=== PATIENT | female | born 2000 | race American Indian/Alaskan Native ===

== ENCOUNTER 2020-12-04 15:03 | Inpatient (IN) | payer MEDICAID ==
[2020-12-04] MEDS ORDERED: ePHEDrine SULFATE 50 MG/1 ML INJ IV PRN ×2 (17:20→17:31)
[2020-12-04] MEDS ORDERED: TERBUTALINE 1 MG/1 ML INJ SUB-Q PRN ×2 (17:20→17:31)
[2020-12-04] MEDS ORDERED: MINERAL OIL 30 ML ORAL LIQD PO PRN ×2 (17:20→17:31)
[2020-12-04] MEDS ORDERED: miSOPROStol 200 MCG TAB PR PRN (17:31)
[2020-12-04] MEDS ORDERED: METHYLERGONOVINE MALEATE 0.2 MG/ML VIAL IM PRN (17:31)
[2020-12-04] MEDS ORDERED: ONDANSETRON 4 MG/2 ML INJ IV PRN (17:31)
[2020-12-04] MEDS ORDERED: BUTORPHANOL 2 MG/1 ML INJ IV PRN ×2 (17:31)
[2020-12-04] MEDS ORDERED: ACETAMINOPHEN 325 MG TAB PO PRN (17:31)
[2020-12-04] MEDS ORDERED: OXYTOCIN 10 UNIT/1 ML INJ IM PRN (17:31)
[2020-12-04] MEDS ORDERED: fentaNYL 100 MCG/2 ML INJ IV PRN (17:31)
[2020-12-04] MEDS ORDERED: CARBOPROST TROMETHAMINE 250 MCG/1 ML INJ IM PRN (17:31)
[2020-12-04] MEDS ORDERED: LIDOCAINE (2%) 20 MG/1 ML VIAL 20 ML MDV INFILTRATI ONE (17:31)
[2020-12-04] MEDS ORDERED: LOPERAMIDE 2 MG CAP PO PRN (17:31)
[2020-12-04] MEDS ORDERED: AMPICILLIN/NS 2 GM/100 ML 2 GM/100 ML BAG IV ONE (17:32)
[2020-12-04] MEDS ORDERED: LACTATED RINGERS 1,000 ML IV SCH (17:45)
[2020-12-04 17:53] LABS: Hematocrit 33.9 % (30.3-42.9); Mean Corpuscular HGB Conc 32 % (30-34); Mean Corpuscular Volume 75 fl (79-97); Platelet Count 158 K/mm3 (140-440); Red Blood Count 4.54 M/mm3 (3.65-5.03); Red Cell Distribution Width 14.8 % (13.2-15.2)
[2020-12-04] MEDS ORDERED: OXYTOCIN DRIP 30 UNITS/500 ML BAG IV SCH ×2 (18:00)
--- NOTE | 2020-12-04 19:38 | History and Physical Report ---
History of Present Illness Date of examination: 12/04/20 Date of admission: 12/04/20 Chief complaint: c/o uc since early am History of present illness: 20 y/o presents to [facility] @ 38.3wks with c/o uc since early am. She denies VB or LOF. Pt initiated her pnc @ [facility] @ 9 4/7wks. She was treated for chly and trich and latter tested neg for both. Pt has is a carrier of Alpha thalassemia and tested pos for GBS. Otherwise her preg has been w/o complicatio ns. Surgical/social/family hx is unremarkable. Pt was found to be in labor and was transferred to L&D for delivery. Past History Past Medical History: no pertinent history Past Surgical History: no surgical history SINGLE END SEWER History: chlamydia, trichomonas Family/Genetic History: none Social history: single, full code - Obstetrical History Expected Date of Delivery: 12/15/20 Actual Gestation: 38 Week(s) 3 Day(s) : 2 Para: 1 Number of Living Children: 1 Medications and Allergies Allergies Allergy/AdvReac Type Severity Reaction Status Date / Time No Known Allergies Allergy Unverified 12/04/20 15:53 Active Meds: Active Medications Acetaminophen (Acetaminophen 325 Mg Tab) 650 mg PO Q4H PRN PRN Reason: Pain, Mild (1-3) Butorphanol Tartrate (Butorphanol 2 Mg/1 Ml Inj) 2 mg IV Q2H PRN PRN Reason: Pain , Severe (7-10) Butorphanol Tartrate (Butorphanol 2 Mg/1 Ml Inj) 1 mg IV Q2H PRN PRN Reason: Pain, Moderate(4-6) LABOR PAIN Carboprost Tromethamine (Carboprost Tromethamine 250 Mcg/1 Ml Inj) 250 mcg IM ONCE PRN PRN Reason: Uterine Bleeding Ephedrine Sulfate (Ephedrine Sulfate 50 Mg/1 Ml Inj) 10 mg IV Q2M PRN PRN Reason: Hypotension Fentanyl (Fentanyl 100 Mcg/2 Ml Inj) 100 mcg IV Q2H PRN PRN Reason: Pain,Severe (7-10) LABOR PAIN Oxytocin/Sodium Chloride (Pitocin/Ns 30 Unit/500ml) 30 units in 500 mls @ 2 mls/hr IV TITR ELIUD; Protocol Lactated Ringer's (Lactated Ringers) 1,000 mls @ 125 mls/hr IV DIRECT ELIUD Oxytocin/Sodium Chloride (Pitocin/Ns 30 Unit/500ml) 30 units in 500 mls @ 40 mls/hr IV TITR ELIUD; Protocol Ampicillin Sodium (Ampicillin/Ns 1 Gm/50 Ml) 1 gm in 50 mls @ 100 mls/hr IV Q4H ELIUD; Protocol Loperamide HCl (Loperamide 2 Mg Cap) 2 mg PO ONCE PRN PRN Reason: give with Hemabate Methylergonovine Maleate (Methylergonovine Maleate 0.2 Mg/Ml Vial) 0.2 mg IM ONCE PRN PRN Reason: Uterine Bleeding Mineral Oil (Mineral Oil 30 Ml Oral Liqd) 30 ml PO QHS PRN PRN Reason: Constipation Misoprostol (Misoprostol 200 Mcg Tab) 800 mcg ID ONCE PRN PRN Reason: Uterine Bleeding Ondansetron HCl (Ondansetron 4 Mg/2 Ml Inj) 4 mg IV Q8H PRN PRN Reason: Nausea And Vomiting Oxytocin (Oxytocin 10 Unit/1 Ml Inj) 10 unit IM ONCE PRN PRN Reason: Uterine Bleeding Terbutaline Sulfate (Terbutaline 1 Mg/1 Ml Inj) 0.25 mg SUB-Q ONCE PRN PRN Reason: Hyperstimulation/Hypertonicity Terbutaline Sulfate (Terbutaline 1 Mg/1 Ml Inj) 0.25 mg SUB-Q ONCE PRN PRN Reason: Hyperstimulation/Hypertonicity Review of Systems All systems: negative Eyes: deferred Ears, nose, mouth and throat: deferred Breasts: normal Genitourinary: normal appearance Rectal Exam: normal exam-external/orifice - Vital Signs Vital signs: Vital Signs Pulse BP 95 H 118/71 12/04/20 15:43 12/04/20 15:43 Temp Pulse Resp BP Pulse Ox 98.5 F 96 H 18 136/80 99 12/04/20 19:23 12/04/20 19:25 12/04/20 19:23 12/04/20 18:08 12/04/20 19:25 - Physical Exam Breasts: Positive: normal Abdomen: Positive: normal appearance, soft, normal bowel sounds, other (gravid) Genitourinary (Female): Positive: normal external genitalia, normal perenium Vulva: both: normal Vagina: Positive: normal moisture Uterus: Positive: enlarged, normal contour, other (gravid) Adnexa: both: normal Anus/Rectum: Positive: normal perianal skin Extremities: Positive: normal - Obstetrical FHR: auscultation normal, category 1 Uterine Contraction Monitor Mode: External Cervical Dilatation: 5 (per nurse) Cervical Effacement Percentage: 75 (per nurse) station: -2 Uterine Contraction Pattern: Irregular Uterine Tone Measurement Phase: Resting Uterine Contraction Intensity: Moderate Results Result Diagrams: 12/04/20 17:23 Abnormal lab results 12/04/20 Range/Units 17:23 WBC 12.1 H (4.5-11.0) K/mm3 MCV 75 L (79-97) fl MCH 24 L (28-32) pg All other labs normal. Assessment and Plan A: IUP@38.3 wks Silent carrier Alpha thalassemia GBS pos P: Admit to L&D Continuos monitoring GBS protocal Pain med/Epidural prn Anticipate - Patient Problems (1) Supervision of normal IUP (intrauterine ) in multigravida Current Visit: Yes Status: Acute (2) Positive GBS test Current Visit: Yes Status: Acute
[2020-12-04] MEDS ORDERED: AMPICILLIN/NS 1 GM/50 ML 1 GM/50 ML BAG IV SCH (22:00)
[2020-12-05] MEDS ORDERED: NALOXONE 2 MG/2 ML INJ IV PRN (00:37)
[2020-12-05] MEDS ORDERED: diphenhydrAMINE 50 MG/ML VIAL IV PRN (00:37)
[2020-12-05] MEDS ORDERED: NalbUPHINE 10 MG/1 ML INJ IV PRN (00:37)
[2020-12-05] MEDS ORDERED: ePHEDrine SULFATE 50 MG/1 ML INJ IV PRN (00:37)
[2020-12-05] MEDS ORDERED: LACTATED RINGERS 250 ML IV SOLN IV ONE (00:37)
[2020-12-05] MEDS ORDERED: ONDANSETRON 4 MG/2 ML INJ IV PRN ×2 (00:37→03:32)
[2020-12-05] MEDS ORDERED: fentaNYL-BUPIV 2 MCG/ML-0.125% 200 MCG/100 ML BAG EPIDURAL SCH (01:00)
--- NOTE | 2020-12-05 01:08 | Anesthesia Consultation ---
Anesthesia Consult and Med Hx Date of service: 12/05/20 - Airway Anesthetic Teeth Evaluation: Good ROM Head & Neck: Adequate Mental/Hyoid Distance: Adequate Mallampati Class: Class I Intubation Access Assessment: Good - Pulmonary Exam CTA: Yes - Cardiac Exam Cardiac Exam: RRR - Pre-Operative Health Status ASA Pre-Surgery Classification: ASA2 Proposed Anesthetic Plan: Epidural - Pulmonary Hx Smoking: No Hx Asthma: No Hx Sleep Apnea: No - Cardiovascular System Hx Hypertension: No Hx Heart Attack/AMI: No Hx Angina: No - Central Nervous System Hx Seizures: No Hx Psychiatric Problems: No - Gastrointestinal Hx Gastroesophageal Reflux Disease: No - Endocrine Hx Renal Disease: No Hx Cirrhosis: No Hx Liver Disease: No Hx Insulin Dependent Diabetes: No Hx Non-Insulin Dependent Diabetes: No Hx Hypothyroidism: No Hx Hyperthyroidism: No - Hematic Hx Anemia: Yes (with this .) Hx Sickle Cell Disease: No - Other Systems Hx Alcohol Use: No
--- NOTE | 2020-12-05 01:09 | Progress Note ---
Labor Epidural - Labor Epidural Start Time: 00:45 Stop Time: 01:00 Performed by:: YADIRA ARVIZU Procedure: Patient is requesting epidural for labor and pain. H&P, labs were reviewed. Patient IDed, H&P reviewed, all questions and concerns were answered, and consent was signed. Timeout was performed at bedside. Patient in sitting position. Sterile prep and drape was performed. 3ml of 1% lidocaine skin wheal at L[3]- L [4]. 18-gauge nadine epidural needle was advanced to loss of resistance with air technique 7.5cm. Negative CSF negative blood. Epidural catheter advanced to [14] centimeters. [negative] Aspiration [negative] test do se. Sterile dressing applied. Patient tolerated procedure.
[2020-12-05] MEDS ORDERED: LANOLIN/ZINC/DIMETHICONE (LANSINOH) 7 GM TP PRN (03:32)
[2020-12-05] MEDS ORDERED: MAGNESIUM HYDROXIDE (MOM) ORAL LIQD UDC PO PRN (03:32)
[2020-12-05] MEDS ORDERED: diphenhydrAMINE 25 MG CAP PO PRN (03:32)
[2020-12-05] MEDS ORDERED: PROMETHAZINE 25 MG TAB PO PRN (03:32)
[2020-12-05] MEDS ORDERED: PROMETHAZINE 25 MG RECT SUPP PR PRN (03:32)
[2020-12-05] MEDS ORDERED: WITCH HAZEL/ GLYCERIN PAD TP PRN (03:32)
--- NOTE | 2020-12-05 04:37 | Procedure Note ---
OB Delivery Note - Delivery Date of Delivery: 12/05/20 Surgeon: SHEA SGAE Estimated blood loss: 100cc - Vaginal Delivery presentation: vertex Delivery position: OA Delivery induction: none Delivery augmentation: pitocin Delivery monitor: external FHT, external uterine Route of delivery: Delivery placenta: spontaneous Delivery cord: 3 umbilical vessels Episiotomy: none Delivery laceration: none Anesthesia: epidural Delivery comments: Called to for delivery. SVE 10/100%/+2 and pt was pushing. of a live viable female infant in OA position. Spontaneous delivery of head and shoulders. Infant was placed on mom's chest/abd for skin to skin bonding. Delayed cord clamping while NICU nurse dried and stimulated . Cord was clamped x 2 and FOB was guided in cutting the cord. was taken to warmer by NICU nurse for an initial asses. 8/9. Spontaneous delivery of an intact placenta with 3CV. FF@ U3 with fundal massage and IV Pitocin. An exploration of tears revealed none. QBL 91cc; FW 3240 Gms. Mom and baby was left in stable condition with nurse. - A at 1 minute: 8 at 5 minutes: 9 Gender: Female (FW 3240 Gms)
[2020-12-05] MEDS: IBUPROFEN 600 MG TAB PO SCH ×2 (09:47→17:50)
[2020-12-05 17:06] LABS: Hematocrit 34.2 % (30.3-42.9)
[2020-12-06] MEDS: IBUPROFEN 600 MG TAB PO SCH ×3 (04:31→21:15)
--- NOTE | 2020-12-06 11:13 | Progress Note ---
Assessment and Plan pp exam, d/c in 1 day. Subjective - Subjective Date of service: 12/06/20 Principal diagnosis: s/p pp day 1 Patient reports: appetite normal, voiding normally, pain well controlled, ambulating normally [place]: doing well Objective - Vital Signs Latest vital signs: Vital Signs Temp Pulse Resp BP BP Pulse Ox 12/06/20 08:16 98.0 F 68 20 118/76 97 12/06/20 00:00 98.2 F 64 20 136/58 100 12/05/20 17:50 18 12/05/20 16:45 97.3 F L 70 16 119/82 99 12/05/20 14:49 18 12/05/20 12:12 97.7 F 48 L 20 121/65 98 Intake and Output 12/05/20 12/06/20 12/06/20 23:59 07:59 15:59 Intake Total 200 240 240 Balance 200 240 240 Intake: Oral 200 240 240 Other: Total, Intake Amount 200 240 240 # Voids Void 1 1 1 - Exam Abdomen: Present: normal appearance, soft Uterus: Present: normal, firm Extremities: Present: normal Incision: Present: normal, dry, intact
--- NOTE | 2020-12-06 14:43 | Post Anesthesia Evaluation ---
- Post Anesthesia Evaluation Patient Participated: Yes Airway Patent: Yes Stable Respiratory Function: Yes Nausea/Vomiting: No Temp > 96.8F: Yes Pain Manageable: Yes Adequeate Hydration: Yes Anesthesia Complications: No Block Receding Appropriately: Yes Patient on Ventilator: No
[2020-12-07 09:12] VITALS: BP 136/85
--- NOTE | 2020-12-07 16:13 | Progress Note ---
Assessment and Plan A: day 2 S/P . P: Discharge patient home today. Discussed with patient discharge instructions and warning signs. Advised patient to avoid intercourse, lifting, housework, and driving. Advised patient to continue taking her vitamins at home. Advised patient to follow up at [facility] office in 6 weeks. Patient voiced understanding of all instructions. Subjective - Subjective Date of service: 12/07/20 Principal diagnosis: s/p pp day 2 Interval history: Patient requests discharge home today. Doing well; no complaints. Patient reports: appetite normal, voiding normally, pain well controlled, flatus, ambulating normally, no dizzy ambulation, no nauseated : doing well Objective - Vital Signs Latest vital signs: Vital Signs Temp Pulse Resp BP Pulse Ox 12/07/20 08:24 97.9 F 57 L 18 136/85 100 12/07/20 00:06 97.7 F 74 18 113/77 100 Intake and Output 12/07/20 12/07/20 12/07/20 07:59 15:59 23:59 Intake Total 240 240 Balance 240 240 Intake: Oral 240 240 Other: Total, Intake Amount 240 240 # Voids Void 1 1 - Exam Cardiovascular: Present: Regular rate Lungs: Present: Clear to auscultation Abdomen: Present: normal appearance, soft. Absent: distention, tenderness, guarding, rigidity Uterus: Present: normal, firm, fundal height below umbilicus. Absent: bogginess, tenderness Extremities: Present: normal. Absent: tenderness, edema
--- NOTE | 2020-12-07 16:15 | Discharge Summary ---
Providers - Providers Date of Admission: 12/04/20 17:22 Date of discharge: 12/07/20 Attending physician: VERA BLACKMON MD Primary care physician: VERA BLACKMON MD Hospitalization Reason for admission: active labor Delivery: Episiotomy: none Laceration: none Other procedures: none complications: none Discharge diagnosis: IUP at term delivered baby: female Pertinent studies: Labs Hospital course: Stable hospital course Condition at discharge: Good Disposition: DC-01 TO HOME OR SELFCARE - Discharge Diagnoses (1) Term delivered Status: Acute Plan - Provider Discharge Summary Activity: routine, no sex for 6 weeks, no heavy lifting 4 weeks, no strenuous exercise Diet: routine Instructions: routine Additional instructions: Continue taking your vitamin daily. Call your doctor immediately for: * Fever > 100.5 * Heavy vaginal bleeding ( >1 pad per hour) * Severe persistent headache * Shortness of breath * Reddened, hot, painful area to leg or breast - Follow up plan Follow up: VERA BLACKMON MD [Primary Care Provider] - 6 Weeks Forms: [facility] Discharge Summary
== END 2020-12-07 17:02 | disposition home or self-care (01) | DRG 775 ==
LOC: TRG 15:03 → APU 15:18 → TRG 17:20 → LD 17:22 → OB 12-05 05:21
PROC: 10E0XZZ Delivery of Products of Conception, External Approach (ICD-10-PCS; principal; 2020-12-05)
PROC: 3E0R3BZ Introduction of Anesthetic Agent into Spinal Canal, Percutaneous Approach (ICD-10-PCS; 2020-12-05)
PROC: 00HU33Z Insertion of Infusion Device into Spinal Canal, Percutaneous Approach (ICD-10-PCS; 2020-12-05)
DX: O99.824 Streptococcus B carrier state complicating childbirth (principal); D56.3 Thalassemia minor; Z20.822 Contact with and (suspected) exposure to COVID-19; O75.89 Other specified complications of labor and delivery; Z3A.38 38 weeks gestation of pregnancy; Z37.0 Single live birth
CPT/HCPCS: 36415; 85014; 85018; 85027; 86592; 86850; 86900; 86901; G0378; J0290; J2590; J7120; U0003